=== PATIENT | female | born 1990 | race Caucasian/White ===

== ENCOUNTER 2021-08-13 02:53 | Emergency (ER) | payer OTHER ==
[~2021-08-13] VITALS: Ht 157.5 cm; Wt 59.0 kg
[2021-08-13] MEDS ORDERED: PRENATAL 19 CH1 EACH (03:04)
== END 2021-08-13 05:41 | disposition home or self-care (01) ==
LOC: ER 02:53
DX: O03.9 Complete or unspecified spontaneous abortion without complication (principal)

== ENCOUNTER 2022-11-14 17:02 | Emergency (ER) | payer OTHER ==
[~2022-11-14] VITALS: Ht 157.5 cm; Wt 65.8 kg
[~2022-11-14 17:02] MED LIST: PRENATAL 19 CH1 EACH
== END 2022-11-14 21:00 | disposition home or self-care (01) ==
LOC: ER 17:02
DX: O20.9 Hemorrhage in early pregnancy, unspecified (principal); Z3A.01 Less than 8 weeks gestation of pregnancy

== ENCOUNTER 2023-02-18 08:53 | Outpatient (CLI) | payer OTHER | END 2023-02-18 09:43 | disposition home or self-care (01) | LOC: PRENATAL 08:53 | PROVIDERS: ATTEND Obstetrics & Gynecology Maternal & Fetal Medicine | DX: O35.9XX0 Maternal care for (suspected) fetal abnormality and damage, unspecified, not applicable or unspecified (principal); O35.3XX0 Maternal care for (suspected) damage to fetus from viral disease in mother, not applicable or unspecified; Z3A.20 20 weeks gestation of pregnancy ==

== ENCOUNTER 2023-05-14 10:50 | Outpatient (CLI) | payer OTHER | END 2023-05-14 12:11 | disposition home or self-care (01) | LOC: PRENATAL 10:50 | PROVIDERS: ATTEND Obstetrics & Gynecology Maternal & Fetal Medicine | DX: O26.849 Uterine size-date discrepancy, unspecified trimester (principal); O36.8199 Decreased fetal movements, unspecified trimester, other fetus; Z3A.32 32 weeks gestation of pregnancy ==

== ENCOUNTER 2023-07-04 12:51 | Inpatient (IN) | payer OTHER ==
[~2023-07-04] VITALS: Ht 157.5 cm; Wt 2.7 kg
== END 2023-07-11 11:51 | disposition home or self-care (01) | DRG 788 ==
LOC: O/R 07-08 07:44 → OB/GYN 07-08 11:30
PROVIDERS: ADMIT Obstetrics & Gynecology; ATTEND Obstetrics & Gynecology
PROC: 4A1HXCZ Monitoring of Products of Conception, Cardiac Rate, External Approach (ICD-10-PCS; 2023-07-08)
PROC: 10D00Z1 Extraction of Products of Conception, Low, Open Approach (ICD-10-PCS; principal; 2023-07-08 11:30)
DX: O32.1XX0 Maternal care for breech presentation, not applicable or unspecified (principal); Z3A.40 40 weeks gestation of pregnancy; Z37.0 Single live birth; Z20.822 Contact with and (suspected) exposure to COVID-19